=== PATIENT | female | born 1990 | race Caucasian/White ===

== ENCOUNTER 2017-04-15 11:59 | Emergency (ER) | payer OTHER ==
--- NOTE | ~2017-04-15 | US67 ---
[facility] A Service of [facility] RADIOLOGY TEXT RESULTS PATIENT: ROBBIE ADHIKARI LOCATION: [facility] : [birth year] UNIT #: [id number] AGE: [address]: Deuce Leal DO SEX: F ORDER DR: [id number] [facility] [address] [place], [place] [address] [id number] E MR#: [id number] Acc #: [id number] NAME: ROBBIE ADHIKARI : 1990 SEX: F STUDY DATE/TIME: 04/15/2017 14:30 UNIT: [facility] ROOM: STUDY DESCRIPTION: Gallbladder Attending Physician: Deuce Leal D.O. Referring Physician: Rajesh Esquivel A.P.R.N. Ordering Physician: Deuce Leal D.O. Primary Care Physician: Rajesh Esquivel A.P.R.N. MEDICAL IMAGING REPORT This report is preliminary unless electronic signature is present EXAM Right upper quadrant abdominal ultrasound INDICATIONS Generalized abdominal pain for the past month. PROCEDURE Dueñas-scale and Doppler imaging right upper quadrant of the abdomen COMPARISON None FINDINGS Visualized portions of the pancreas are unremarkable. No liver mass on submitted images. Liver measures 18.3 cm. Common duct measures 3 mm. Right Kidney is unremarkable. The gallbladder is filled with stones. No appreciable gallbladder wall thickening or pericholecystic fluid. Common duct measures 5 mm. IMPRESSION 1. Extensive cholelithiasis. 2. Common duct is slightly prominent for the patient's age. Correlate with laboratory values regarding physiologic significance. If further evaluation of the common duct is desired clinically, MRCP or ERCP may be helpful. Dictated by... Edin Zavala M.D. THIS IS AN ELECTRONICALLY VERIFIED REPORT Edin Zavala M.D. at 04/15/2017 10:23 PM [facility] A Service of [facility] RADIOLOGY TEXT RESULTS PATIENT: ROBBIE ADHIKARI LOCATION: [facility] : [birth year] UNIT #: [id number] AGE: [address]: Deuce Leal DO SEX: F ORDER DR: CELIA/parminder TD: 04/15/2017 17:38 JOB #: [id number] MEDICAL IMAGING REPORT Page 1 of 1 COPY
--- NOTE | ~2017-04-15 | CT16 ---
[facility] A Service of [facility] RADIOLOGY TEXT RESULTS PATIENT: ROBBIE ADHIKARI LOCATION: [facility] : [birth year] UNIT #: [id number] AGE: [address]: Deuce Leal DO SEX: F ORDER DR: [id number] [facility] [address] [place], [place] [address] [id number] E MR#: [id number] Acc #: [id number] NAME: ROBBIE ADHIKARI : 1990 SEX: F STUDY DATE/TIME: 04/15/2017 17:39 UNIT: [facility] ROOM: STUDY DESCRIPTION: CT Angio Chest for PE Attending Physician: Deuce Leal D.O. Referring Physician: Rajesh Esquivel A.P.R.N. Ordering Physician: Deuce Leal D.O. Primary Care Physician: Rajesh Esquivel A.P.R.N. MEDICAL IMAGING REPORT This report is preliminary unless electronic signature is present EXAM CTA chest, PE protocol. INDICATIONS Left flank pain, worsening since last night. PROCEDURE Contrast-enhanced CTA of the chest, attention on opacification of pulmonary arteries. Coronal, 3D, MIP sagittal reformatted images reconstructed and submitted. This CT exam was performed with one or more of the following radiation dose reduction techniques: automatic exposure control, adjustment of mA and/or kV according to patient size, and iterative reconstruction. COMPARISON None. FINDINGS No evidence for pulmonary embolus. No evidence for acute aortic injury. No adenopathy. No acute findings in the included upper abdomen. Partially included cholelithiasis. 5 mm nodule right middle lobe. No aggressive-appearing bone lesion. IMPRESSION 1. No evidence for pulmonary embolus or acute aortic injury. Lungs are clear. 2. 5 mm nodule right middle lobe. Correlate with patient's risk factors. If patient has low risk factors no additional follow-up is required. Given patient's age it is probably benign. 3. Partially included cholelithiasis. Dictated by... [facility] A Service [facility] RADIOLOGY TEXT RESULTS PATIENT: ROBBIE ADHIKARI LOCATION: [facility] : [birth year] UNIT #: [id number] AGE: [address]: Deuce Leal DO SEX: F ORDER DR: Edin Zavala M.D. THIS IS AN ELECTRONICALLY VERIFIED REPORT Edin Zavaal M.D. at 04/15/2017 10:23 PM CELIA/bessy TD: 04/15/2017 21:10 JOB #: [id number] MEDICAL IMAGING REPORT Page 1 of 1 COPY
[2017-04-15 12:55] LABS: URINE SOURCE CLEAN CATCH
[2017-04-15 12:58] LABS: URINE APPEARANCE CLOUDY; URINE BILIRUBIN NEG (NEG); URINE BLOOD NEG (NEG); URINE COLOR DK YELLOW; URINE GLUCOSE NEG (NEG); URINE KETONE TRACE (NEG); URINE LEUKOCYTE ESTERASE 2+ (NEG); URINE NITRATE NEG (NEG); URINE PROTEIN NEG (NEG)
[2017-04-15 13:01] LABS: CULTURE INDICATED? YES; URINE BACTERIA AUWI 2+ (NEGATIVE); URINE SQUAMOUS EPITHELIAL CELL FEW /[HPF]; UWBCS1 AUWI 25-50 (0-5)
[2017-04-15 14:23] LABS: BASOPHIL# 0.1 X10e3 (0-0.3); BASOPHIL% 0.7 % (0-2.5); EOSINOPHIL# 0.1 X10e3 (0-0.7); EOSINOPHIL% 1.2 % (0.0-7.0); HEMATOCRIT 38.5 % (35.0-45.0); LYMPHOCYTE# 1.3 X10e3 (1.0-3.5); LYMPHOCYTE% 18.3 % (17.0-45.0); MEAN CORPUSCULAR HEMOGLOBIN 31.3 PG (28-34); MEAN CORPUSCULAR HGB CONC 33.7 g/dL (30-36); MEAN PLATELET VOLUME 8.7 FL (6.5-11.5); MONOCYTE# 0.5 X10e3 (0-1.0); MONOCYTE% 6.8 % (3.0-12.0); NEUTROPHIL# 5.3 X10e3 (1.5-7.1); PLATELET COUNT 235 X10e3 (140-420); RED BLOOD COUNT 4.14 X10e (3.90-5.30); RED CELL DISTRIBUTION WIDTH 12.1 % (11.0-15.5); WHITE BLOOD COUNT 7.3 X10e3 (4.0-10.5)
[2017-04-15 14:25] LABS: POC - CKMB 1.3 ng/mL (0.0-7.9); POC - TROPONIN <0.05 ng/mL (<=0.05)
[2017-04-15 14:26] LABS: DIFF IND NO
[2017-04-15 14:46] LABS: ALBUMIN SERUM 3.8 g/dL (3.5-5.0); BILIRUBIN, DIRECT 0.1 mg/dL (0.0-0.2); BILIRUBIN,INDIRECT 0.8 mg/dL (0.0-0.9); BILIRUBIN,TOTAL 0.9 mg/dL (0.2-2.0); CALCIUM SERUM 8.9 mg/dL (8.4-10.2); GLOM FILT RATE Estimated 78.3 mL/min (>60); POTASSIUM 3.5 mmol/L (3.5-5.1); PROTEIN TOTAL SERUM 7.3 g/dL (6.0-8.3)
[2017-04-19] MEDS ORDERED: MIRENA VAG (14:55)
== END 2017-04-15 18:36 | disposition home or self-care (01) ==
LOC: CED 11:59
PROVIDERS: Emergency Medicine
DX: N39.0 Urinary tract infection, site not specified (principal); R91.1 Solitary pulmonary nodule
CPT/HCPCS: 36415; 71275; 76705; 80048; 80076; 81003; 82553; 83690; 84484; 84703; 85025; 85379; 87086; 99284; Q9967

== ENCOUNTER → 2017-04-19 | Outpatient (CLI) | payer OTHER ==
[~2017-04-19] MED LIST: MIRENA VAG
[2017-04-19 15:20] LABS: HEMATOCRIT 38.2 % (35.0-45.0); HEMOGLOBIN 12.9 gm/dL (12.0-16.0); MEAN CELL VOLUME 92.8 FL (83-96); MEAN CORPUSCULAR HEMOGLOBIN 31.3 PG (28-34); MEAN CORPUSCULAR HGB CONC 33.7 g/dL (30-36); MEAN PLATELET VOLUME 8.4 FL (6.5-11.5); RED BLOOD COUNT 4.12 X10e (3.90-5.30); RED CELL DISTRIBUTION WIDTH 12.2 % (11.0-15.5); WHITE BLOOD COUNT 9.4 X10e3 (4.0-10.5)
[2017-04-19 15:49] LABS: ALBUMIN SERUM 3.8 g/dL (3.5-5.0); BILIRUBIN,TOTAL 0.3 mg/dL (0.2-2.0); BUN/CREATININE RATIO 12.5; CALCIUM SERUM 9.1 mg/dL (8.4-10.2); CREATININE SERUM 0.8 mg/dL (0.6-1.4); GLOM FILT RATE Estimated 102.6 mL/min (>60)
== END | disposition home or self-care (01) ==
LOC: CAMB 14:36
PROVIDERS: Specialist
DX: Z01.812 Encounter for preprocedural laboratory examination (principal)
CPT/HCPCS: 36415; 80053; 85027

== ENCOUNTER → 2017-04-23 | Day surgery (SDC) | payer OTHER ==
--- NOTE | ~2017-04-23 | OR ---
Unit #: [id number] #: [id number] Patient: ROBBIE ADHIKARI [id number] [facility] [address] [place], [place] [address] [id number] O MR#: [id number] NAME: ROBBIE ADHIKARI ROOM: Date of Procedure: 04/23/2017 Admission Date: 04/23/2017 Surgeon: Medhat Graham M.D. : 1990 Attending Physician: Medhat Graham M.D. Primary Care Physician: Rajesh Esquivel A.P.R.N. OPERATIVE REPORT PREOPERATIVE DIAGNOSES Chronic cholecystitis and cholelithiasis. POSTOPERATIVE DIAGNOSES Chronic cholecystitis and cholelithiasis. PROCEDURE PERFORMED Laparoscopic cholecystectomy. ANESTHESIA General endotracheal anesthesia. ESTIMATED BLOOD LOSS Less than 10 mL. INDICATIONS FOR PROCEDURE A morbidly obese 26-year-old female, who has had previous , presents with postprandial nausea and right upper quadrant pain. Radiologic evaluation revealed cholelithiasis with normal biliary ductal system. DESCRIPTION OF PROCEDURE The patient was admitted to [facility], positively identified, and transported to the operating room, and after induction of general endotracheal anesthesia, SCDs were placed and she received IV antibiotics per SCIP protocol. A 5-mm supraumbilical incision was made. Veress needle was placed. Pneumoperitoneum was created. Then, a 5-mm trocar was placed. Laparoscope was introduced into peritoneal cavity and under direct vision, the epigastric and lateral ports were placed. Gallbladder was grasped and elevated. Adhesions were stripped away from the gallbladder surface and the infundibulum was identified and retracted laterally. [place] of [place] was dissected out clearly identifying the cystic duct, gallbladder, and cystic duct-common duct junction. A single clip was placed in the cystic duct as it entered the gallbladder and then 3 clips were placed distally and the cystic duct sharply divided. Posteriorly, the cystic artery was doubly clipped proximally and distally and divided. I then dissected the gallbladder liver bed using cautery dissection. In the midportion of the liver bed, there was an aberrant vessel that had some bleeding, it was controlled with clipping and cautery. I then completed the dissection of the gallbladder liver bed. I brought the gallbladder out through the epigastric port. There was no spillage of stones. I rechecked the liver bed. There was good Unit #: [id number] #: [id number] Patient: ROBBIE ADHIKARI hemostasis. The clips were well positioned. The epigastric fascial defect was closed using a neoClose device and the closure was airtight. I then reduced the pneumoperitoneum as I removed laparoscope and trocars. 0.5% Marcaine with epinephrine was infiltrated into each trocar site and the skin was closed with 4-0 Monocryl subcuticular closure and Dermabond skin adhesive. Findings and postoperative instructions were discussed with the patient's mother. Dictated by... Tish Vazquez/aundrea TD: 04/24/2017 02:31 JOB #: [id number] OPERATIVE REPORT Page 1 of 1 X Medhat Graham MD X PROCEDURE OPERATIVE NOTE
== END | disposition home or self-care (01) ==
LOC: CSUR 10:12
DX: K80.10 Calculus of gallbladder with chronic cholecystitis without obstruction (principal); F17.210 Nicotine dependence, cigarettes, uncomplicated; M41.9 Scoliosis, unspecified; E66.9 Obesity, unspecified; Z88.0 Allergy status to penicillin; Z68.42 Body mass index [BMI] 45.0-49.9, adult; Z98.890 Other specified postprocedural states
CPT/HCPCS: 84703; 88304; J0131; J0330; J1100; J1170; J1885; J2250; J2710; J3010; J3370